=== PATIENT | male | born 2000 | race African-American/Black ===

== ENCOUNTER 2019-02-09 10:46 | Day surgery (SDC) | payer OTHER ==
[~2019-02-09] VITALS: Ht 177.8 cm; Wt 120.0 kg
== END 2019-02-09 14:40 | disposition home or self-care (01) ==
LOC: OUT 10:46
PROVIDERS: ATTEND Urology
DX: Z46.6 Encounter for fitting and adjustment of urinary device (principal); N13.1 Hydronephrosis with ureteral stricture, not elsewhere classified
CPT/HCPCS: 52310; 81001; 87086; J0690; J1100; J2405; J2704; J3010; J7120

== ENCOUNTER 2020-04-25 05:47 | Observation (INO) | payer OTHER ==
[2020-04-22 08:51] VITALS: BP 147/83
[~2020-04-25] VITALS: Ht 180.3 cm; Wt 127.5 kg
[~2020-04-25 05:47] MED LIST: no medications
[2020-04-25] MEDS ORDERED: FENTANYL PF 100 MCG/2ML ONE ×4 (06:54→11:51)
[2020-04-25] MEDS ORDERED: MIDAZOLAM 1 MG/ML, 2ML ONE (06:54)
[2020-04-25] MEDS ORDERED: NEOSTIGMINE 1 MG/ML, 10ML ONE (06:55)
[2020-04-25] MEDS ORDERED: ONDANSETRON 2MG/ML, 2ML ONE (06:55)
[2020-04-25] MEDS ORDERED: ROCURONIUM 10MG/ML,5ML ONE (06:55)
[2020-04-25] MEDS ORDERED: SUCCINYLCHOLINE 20 MG/ML, 10ML ONE (06:55)
[2020-04-25] MEDS ORDERED: CEFAZOLIN 1,000 MG ONE (06:55)
[2020-04-25] MEDS ORDERED: GLYCOPYRROLATE 0.2MG/1ML, 5ML ONE (06:55)
[2020-04-25] MEDS ORDERED: DEXAMETHASONE 4 MG/ML, 1ML ONE (06:55)
[2020-04-25] MEDS ORDERED: PROPOFOL 10 MG/ML, 20ML ONE (06:55)
[2020-04-25] MEDS ORDERED: EPINEPHRINE 1 MG/ML, 1ML ONE (06:58)
[2020-04-25] MEDS ORDERED: METHYLENE BLUE 50 MG/10 ML AMP ONE (06:58)
[2020-04-25] MEDS ORDERED: INDIGO CARMINE 0.8%, 5ML ONE (06:58)
[2020-04-25] MEDS ORDERED: BUPIVACAINE/PF 0.25% ONE (06:58)
[2020-04-25] MEDS ORDERED: CHLORHEXIDINE 15 ML UDC MM ONE (07:00)
[2020-04-25] MEDS: LACTATED RINGERS 1,000 ML IV SCH ×3 (07:05→23:47)
[2020-04-25] MEDS ORDERED: MEPERIDINE/PF 25MG/0.5ML IVPush PRN (07:30)
[2020-04-25] MEDS ORDERED: PROMETHAZINE 25 MG/ML, 1ML IVPush PRN (07:30)
[2020-04-25] MEDS ORDERED: HYDROcodone/APAP 7.5-325MG/15ML UDC PO PRN (07:30)
[2020-04-25] MEDS ORDERED: HYDROmorphone 1 MG/ML, 1ML INJ IVPush PRN (07:30)
[2020-04-25] MEDS ORDERED: OXYcodone 5 MG/5 ML ORAL.SOL UDC ONE (10:18)
[2020-04-25] MEDS ORDERED: KETOROLAC 30 MG/1 ML ONE (10:18)
[2020-04-25] MEDS: FENTANYL PF 100 MCG/2ML IV PRN ×4 (10:27→10:59)
[2020-04-25] MEDS: OXYcodone 5 MG/5 ML ORAL.SOL UDC PO PRN ×2 (10:29→10:43)
[2020-04-25] MEDS ORDERED: KETOROLAC 30 MG/1 ML IVPush ONE (10:30)
[2020-04-25] MEDS ORDERED: HYDROmorphone 1 MG/ML, 1ML INJ ONE (10:57)
[2020-04-25] MEDS ORDERED: ACETAMINOPHEN 325 MG TABLET PO PRN (12:00)
[2020-04-25] MEDS ORDERED: ONDANSETRON 2MG/ML, 2ML IV PRN (12:00)
[2020-04-25] MEDS ORDERED: morphine SULFATE 10 MG/ML, 1ML IV PRN (12:00)
[2020-04-25] MEDS ORDERED: DIPHENHYDRAMINE 50 MG/ML, 1ML IV PRN (12:00)
[2020-04-25] MEDS: CEFAZOLIN PMX 1GM/50ML 50 ML IVPB SCH (15:38)
[2020-04-25] MEDS: HYDROcodone/APAP 5/325 TABLET PO PRN ×2 (17:08→22:40)
[2020-04-25] MEDS: KETOROLAC 30 MG/1 ML IV PRN ×2 (17:08→23:47)
[2020-04-25 19:11] VITALS: BP 128/75
[2020-04-25 23:51] VITALS: BP 134/86
[2020-04-26] MEDS: CEFAZOLIN PMX 1GM/50ML 50 ML IVPB SCH (01:13)
[2020-04-26 03:52] VITALS: BP 132/77
[2020-04-26] MEDS: HYDROcodone/APAP 5/325 TABLET PO PRN ×2 (03:58→11:47)
[2020-04-26 06:31] VITALS: BP 118/65
[2020-04-26] MEDS ORDERED: ENOXAPARIN 40 MG/0.4 ML SQ SCH (07:00)
[2020-04-26] MEDS ORDERED: PHEN-418 PO (08:58)
[2020-04-26] MEDS ORDERED: HYDR-3240 PO (09:00)
[2020-04-26] MEDS: LACTATED RINGERS 1,000 ML IV SCH (09:20)
[2020-04-26 10:14] LABS: CREATININE 1.29 mg/dL (0.7-1.3)
[2020-04-26 11:49] VITALS: BP 126/76
== END 2020-04-26 12:14 | disposition home or self-care (01) ==
LOC: OUT 05:47 → 4NE 11:28 → INTOOBSV 11:36 → OUT 12:03 → DCLOUNGE 04-26 11:59
PROVIDERS: ADMIT Urology; ATTEND Urology
DX: N13.0 Hydronephrosis with ureteropelvic junction obstruction (principal); Z20.828 Contact with and (suspected) exposure to other viral communicable diseases; Q63.2 Ectopic kidney
CPT/HCPCS: 36415; 50544; 82565; 87635; 88305; 96361; 96365; 96366; 96372; 96375; 96376; C1729; C2617; G0378; J0171; J0330; J0690; J1100; J1170; J1650; J1885; J2250; J2405; J2704; J2710; J3010; J7120; Q9968